=== PATIENT | male | born 1985 | race Two or more races ===

== ENCOUNTER 2019-04-23 09:02 | Emergency (ER) | payer MEDICAID, OTHER ==
[~2019-04-23] VITALS: Ht 162.6 cm; Wt 74.8 kg
[2019-04-23 11:00] VITALS: BP 112/75
== END 2019-04-23 11:32 | disposition home or self-care (01) ==
LOC: ER 09:06
DX: G51.0 Bell's palsy (principal)
CPT/HCPCS: 70450; 93005

== ENCOUNTER 2023-03-04 09:01 | Emergency (ER) | payer MEDICAID ==
[~2023-03-04] VITALS: Ht 160 cm; Wt 72.0 kg
[2023-03-04 09:08] VITALS: BP 121/80; PULSE 75; RESP 18; TEMP 97.5; O2SAT 98
[2023-03-04] MEDS ORDERED: HYDROcodone-ACET 10/325MG TAB PO ONE (12:15)
[2023-03-04] MEDS ORDERED: IBUP-1454 PO (13:09)
== END 2023-03-04 13:30 | disposition home or self-care (01) ==
LOC: ER 09:01
DX: S93.401A Sprain of unspecified ligament of right ankle, initial encounter (principal); W18.39XA Other fall on same level, initial encounter; Y93.89 Activity, other specified; Y92.89 Other specified places as the place of occurrence of the external cause; Y99.8 Other external cause status
CPT/HCPCS: 73610